=== PATIENT | male | born 1950 | race Caucasian/White ===

== ENCOUNTER 2021-01-27 17:03 | Inpatient (IN) | payer OTHER ==
[~2021-01-27] VITALS: Ht 175.3 cm; Wt 78.5 kg
[~2021-01-27 17:03] MED LIST: CLIN300 PO; LORA1 PO; POTASSIUM; POTCHL20ER PO; [UNRECOGNIZED DRUG - REMARK]
[2021-01-27 17:57] LABS: BASOPHILS ABSOLUTE AUTO 0.02 K/mm3 (0.00-0.23); BASOPHILS PERCENT AUTO 0 % (0-2); EOSINOPHILS PERCENT AUTO 0 % (0-6); Hematocrit 49.5 % (37.0-53.0); Hemoglobin 16.9 g/dL (13.5-17.5); IMMATURE GRAN ABSOLUTE AUTO 0.03 K/mm3 (0.00-0.10); IMMATURE GRAN PERCENT AUTO 0 % (0-1); LYMPHOCYTES ABSOLUTE AUTO 1.51 K/mm3 (0.84-5.20); LYMPHOCYTES PERCENT AUTO 18 % (21-46); MONOCYTES ABSOLUTE AUTO 0.65 K/mm3 (0.16-1.47); MONOCYTES PERCENT AUTO 8 % (4-13); Mean Corpuscular HGB 31.1 pg (26.0-34.0); Mean Corpuscular HGB Conc 34.1 g/dL (31.5-36.5); Mean Corpuscular Volume 91 fL (80-100); Mean Platelet Volume 9.7 fL (9.1-12.4); NEUTROPHILS PERCENT AUTO 73 % (41-73); Platelet Count 215 K/mm3 (150-400); RDW Coefficient Variation 13.5 % (11.7-14.2); RDW Standard Deviation 45.8 fL (35.1-46.3); Red Blood Cell Count 5.43 M/mm3 (4.30-5.90); White Blood Cell Count 8.31 K/mm3 (4.00-11.30)
[2021-01-27 18:05] LABS: Alanine Aminotransfer (ALT/SGP 56 U/L (12-78); Albumin, Blood 3.4 g/dL (3.4-5.0); Albumin/Globulin Ratio 0.8 (0.8-1.8); Alk Phos 67 U/L (50-136); Anion Gap 9 mmol/L (6-16); Aspartate Aminotrans (AST/SGOT 97 U/L (12-37); Bilirubin, Total 0.8 mg/dL (0.1-1.0); Blood Urea Nitrogen 31 mg/dL (8-24); Bun/Creatinine Ratio 22.3 (12.0-20.0); CO2, Blood 24 mmol/L (21-32); Calcium, Blood 8.4 mg/dL (8.5-10.1); Chloride, Blood 99 mmol/L (98-108); Creatinine, Blood 1.39 mg/dL (0.60-1.20); Globulin, Blood 4.5 g/dL (2.2-4.0); Glomerular Filtration Rate 50 (60-); Glucose, Blood 105 mg/dL (70-99); Potassium, Blood 4.8 mmol/L (3.5-5.5); Sodium, Blood 132 mmol/L (136-145); Total Protein, Blood 7.9 g/dL (6.4-8.2); Troponin I <0.015 ng/mL (0.000-0.040)
[2021-01-27] MEDS ORDERED: MELO7.5 PO (23:16)
[2021-01-27] MEDS ORDERED: K-Dur10 MEQ PO (23:17)
[2021-01-28 04:48] LABS: Anion Gap 9 mmol/L (6-16); Blood Urea Nitrogen 27 mg/dL (8-24); Bun/Creatinine Ratio 24.5 (12.0-20.0); CO2, Blood 22 mmol/L (21-32); Calcium, Blood 7.9 mg/dL (8.5-10.1); Chloride, Blood 100 mmol/L (98-108); Glomerular Filtration Rate >60 (60-); Glucose, Blood 238 mg/dL (70-99); Potassium, Blood 4.5 mmol/L (3.5-5.5); Sodium, Blood 131 mmol/L (136-145)
--- NOTE | 2021-01-28 05:44 | NUR ---
SHIFT SUMMARY ASSUMED CARE OF PT AT 2310. PT IS A/OX4. HEART SOUNDS REGULAR, TELE SHOWS SINUS RYTHMN. LUNG SOUNDS ARE COURSE T/O. PT CAME ONTO THE UNIT ON THE BIPAP BUT WAS SWITCHED TO 15L OXIMIZER SO HE COULD HAVE A SNACK. PT SATURATIONS REMAINED BETWEEN 88-92%. PT WAS BEDREST AND USED THE URINAL T/O THE NIGHT. PT REPORTED A NON PRODUCTIVE HACKING COUGH, MEDICATED PER EMAR. CALL LIGHT IN REACH, BED IN LOWEST POSITON.
[2021-01-28 11:59] LABS: PCO2 Arterial 34.9 mmHg (35-45); PO2 Arterial 62.2 mmHg (80-100); pH Blood Arterial 7.43 (7.35-7.45)
--- NOTE | 2021-01-28 19:19 | NUR ---
SHIFT SUMMARY PT A&Ox4; CALM AND COOPERATIVE WITH CARE. PT RESTING IN BED DURING SHIFT, PRONES IND. PT SOB AT REST, ON BIPAP / 85% FIO2, PT UNABLE TO MAINTAIN OF OXYMIZER 15L; PLACED ON AIRVO 60L AT 85%, DESATURATES 86-88 WITH MOVEMENT, OTHERWISE 88-96%. PT DENIES PAIN, NAUSEA AND DIZZINESS. VSS. PT RECEIVED DECADRON IV PER ORDERS. ATTEMPTED TO USE BEDPAN WITH NO SUCCESS. PT HAS RED RASH TO GLUTEAL CLEF. VSS. NO OTHER ACUTE CHANGES NOTED. REPORT GIVEN TO ONCOMING RN.
[2021-01-29 04:01] LABS: BASOPHILS ABSOLUTE AUTO 0.03 K/mm3 (0.00-0.23); BASOPHILS PERCENT AUTO 0 % (0-2); EOSINOPHILS PERCENT AUTO 0 % (0-6); Hematocrit 47.1 % (37.0-53.0); Hemoglobin 16.5 g/dL (13.5-17.5); IMMATURE GRAN ABSOLUTE AUTO 0.08 K/mm3 (0.00-0.10); IMMATURE GRAN PERCENT AUTO 1 % (0-1); LYMPHOCYTES ABSOLUTE AUTO 1.52 K/mm3 (0.84-5.20); LYMPHOCYTES PERCENT AUTO 11 % (21-46); MONOCYTES ABSOLUTE AUTO 1.19 K/mm3 (0.16-1.47); MONOCYTES PERCENT AUTO 9 % (4-13); Mean Corpuscular HGB 31.2 pg (26.0-34.0); Mean Corpuscular Volume 89 fL (80-100); Mean Platelet Volume 9.4 fL (9.1-12.4); NEUTROPHILS ABSOLUTE AUTO 11.18 K/mm3 (1.96-9.15); NEUTROPHILS PERCENT AUTO 80 % (41-73); Platelet Count 259 K/mm3 (150-400); RDW Coefficient Variation 13.2 % (11.7-14.2); RDW Standard Deviation 43.3 fL (35.1-46.3); Red Blood Cell Count 5.29 M/mm3 (4.30-5.90)
[2021-01-29 04:23] LABS: Anion Gap 6 mmol/L (6-16); Blood Urea Nitrogen 35 mg/dL (8-24); Bun/Creatinine Ratio 31.2 (12.0-20.0); CO2, Blood 25 mmol/L (21-32); Calcium, Blood 8.1 mg/dL (8.5-10.1); Chloride, Blood 103 mmol/L (98-108); Creatinine, Blood 1.12 mg/dL (0.60-1.20); Glomerular Filtration Rate >60 (60-); Glucose, Blood 132 mg/dL (70-99); Magnesium, Blood 2.7 mg/dL (1.6-2.4); Phosphorus, Blood 2.9 mg/dL (2.5-4.9); Potassium, Blood 4.5 mmol/L (3.5-5.5); Sodium, Blood 134 mmol/L (136-145)
[2021-01-29 15:53] LABS: Source, Urine Clean Catch
[2021-01-29 16:00] LABS: Appearance, Urine Clear (Clear); Bilirubin, Urine Neg (Neg); Blood, Urine 3+ (Neg); Color, Urine Yellow (P-Yellow); Glucose Qualitative, Urine 2+ (Neg); Ketones, Urine Neg (Neg); Leukocyte Esterase, Urine Neg (Neg); Nitrite, Urine Neg (Neg); Protein, Urine 2+ (Neg); Urobilinogen, Urine NORM (Normal)
[2021-01-29 16:11] LABS: White Blood Cells, Urine 0-2 /hpf (0-5)
[2021-01-29 16:12] LABS: Bacteria Rare /hpf; Squamous Epithelial Cells Rare /hpf (Few)
--- NOTE | 2021-01-29 19:32 | NUR ---
SHIFT SUMMARY PT A&Ox4; ANXIOUS AT TIMES, COOPERATIVE WITH CARE PT RESTING IN BED UP TO CHAIR WITH 1 PERSON ASSIST. PT SOB WITH EXERTION, SPO2 88-90% ON AIRVO 60L AT 100% FIO2, ON BIPAP FOR MAJORITY OF SHIFT, SETTING 12/7 90%, SPO2 >90%. COUGHING NOTED, NONPRODUCTIVE. PT REPORTS HEART BURN THIS AM , DR ALMENDAREZ AT [facility], NEW ORDERS, MEDICATION ADMINISTERED. PT DENIES PAIN, CHEST PAIN, NAUSEA AND DIZZINESS. UP TO CHAIR THIS AFTERNOON FOR BEDBATH AND FOR DINNER. ENCOURAGED PT TO PRONE, ON SIDE T/O SHIFT. NO OTHER ACUTE CHANGES NOTED. REPORT GIVNE TO ONCOMING RN.
[2021-01-30 04:09] LABS: BASOPHILS ABSOLUTE AUTO 0.03 K/mm3 (0.00-0.23); BASOPHILS PERCENT AUTO 0 % (0-2); EOSINOPHILS PERCENT AUTO 0 % (0-6); Hematocrit 46.1 % (37.0-53.0); Hemoglobin 15.9 g/dL (13.5-17.5); Mean Corpuscular HGB 30.9 pg (26.0-34.0); Mean Corpuscular HGB Conc 34.5 g/dL (31.5-36.5); Mean Corpuscular Volume 90 fL (80-100); Mean Platelet Volume 9.9 fL (9.1-12.4); Platelet Count 290 K/mm3 (150-400); RDW Coefficient Variation 13.2 % (11.7-14.2); RDW Standard Deviation 43.5 fL (35.1-46.3); Red Blood Cell Count 5.14 M/mm3 (4.30-5.90); White Blood Cell Count 14.63 K/mm3 (4.00-11.30)
[2021-01-30 04:11] LABS: IMMATURE GRAN ABSOLUTE AUTO 0.13 K/mm3 (0.00-0.10); IMMATURE GRAN PERCENT AUTO 1 % (0-1); LYMPHOCYTES ABSOLUTE AUTO 1.64 K/mm3 (0.84-5.20); LYMPHOCYTES PERCENT AUTO 11 % (21-46); MONOCYTES PERCENT AUTO 8 % (4-13); NEUTROPHILS ABSOLUTE AUTO 11.63 K/mm3 (1.96-9.15); NEUTROPHILS PERCENT AUTO 80 % (41-73)
[2021-01-30 04:30] LABS: Anion Gap 5 mmol/L (6-16); Blood Urea Nitrogen 33 mg/dL (8-24); Bun/Creatinine Ratio 34.5 (12.0-20.0); CO2, Blood 26 mmol/L (21-32); Calcium, Blood 7.8 mg/dL (8.5-10.1); Chloride, Blood 106 mmol/L (98-108); Creatinine, Blood 0.96 mg/dL (0.60-1.20); Glomerular Filtration Rate >60 (60-); Glucose, Blood 126 mg/dL (70-99); Potassium, Blood 4.9 mmol/L (3.5-5.5); Sodium, Blood 137 mmol/L (136-145)
--- NOTE | 2021-01-30 06:13 | NUR ---
SHIFT SUMMARY ASSUMED CARE OF PT AT 1900. PT IS A/OX4. HEART SOUNDS REGULAR. LUNG SOUNDS HAVE FINE CRACKLES T/O. PT SATURATIONS REMAINED BETWEEN 88% - 93% ON THE BIPAP. PT REPORTS COUGHING ALOT, MEDICATED PER EMAR.PT C/O CONSTIPATION, PT HAD A SMALL BM. PT NOTICED YESTERDAY THAT HE WOULD HAVE BLOODY DISCHARGE AFTER URINATING. AFTER URINATING HE WOULD DAB A TISSUE AND IT WOULD TURN FROM PINK TO BRIGHT RED. PT IS WORRIED AND SAID THIS HAS NEVER HAPPENED BEFORE. PT UA SHOED POSITIVE FOR BLOOD AND PROTEIN IN THE URINE BUT NO UTI. CALL LIGHT IN REACH, BED IN LOWEST POSTION.
--- NOTE | 2021-01-30 18:39 | NUR ---
SHIFT SUMMARY PT A/O X4; PLEASANT AND COOPERATIVE WITH CARE. UNABLE TO MAINTAIN O2 SATS ABOVE 90% THIS AM ON AIRVO SO WAS SWITCHED TO CPAP. PT LEFT HIS CPAP ON FOR THE MAJORITY OF THE SHIFT. WAS ABLE TO MAINTAIN O2 SATS >90% AND GOT UP TO THE CHAIR. TRIALED SWITCHING BACK TO AIRVO AND THE PT TOLERATED IT WELL. CURRENTLY ON AIRVO AT 60L WITH 90%. VSS. WILL REPORT TO ONCOMING RN.
--- NOTE | 2021-01-31 00:49 | NUR ---
PT SPO2 READ 88% CONSISTENTLY WHILE PT WAS FALLING ASLEEP, CHANGED TO BIPAP 12/7 100% AND SPO2 READING >93%.
[2021-01-31 03:49] LABS: Hematocrit 44.3 % (37.0-53.0); Hemoglobin 15.4 g/dL (13.5-17.5); Mean Corpuscular HGB Conc 34.8 g/dL (31.5-36.5); Mean Corpuscular Volume 89 fL (80-100); Mean Platelet Volume 9.8 fL (9.1-12.4); Platelet Count 298 K/mm3 (150-400); RDW Coefficient Variation 13.3 % (11.7-14.2); RDW Standard Deviation 43.8 fL (35.1-46.3); Red Blood Cell Count 4.97 M/mm3 (4.30-5.90); White Blood Cell Count 16.66 K/mm3 (4.00-11.30)
[2021-01-31 04:06] LABS: Anion Gap 4 mmol/L (6-16); Blood Urea Nitrogen 29 mg/dL (8-24); Bun/Creatinine Ratio 29.7 (12.0-20.0); CO2, Blood 26 mmol/L (21-32); Calcium, Blood 7.7 mg/dL (8.5-10.1); Chloride, Blood 104 mmol/L (98-108); Creatinine, Blood 0.98 mg/dL (0.60-1.20); Glomerular Filtration Rate >60 (60-); Glucose, Blood 110 mg/dL (70-99); Potassium, Blood 4.6 mmol/L (3.5-5.5); Sodium, Blood 134 mmol/L (136-145)
[2021-01-31 04:28] LABS: PCO2 Arterial 36.2 mmHg (35-45); PO2 Arterial 93.8 mmHg (80-100); pH Blood Arterial 7.46 (7.35-7.45)
--- NOTE | 2021-01-31 04:37 | NUR ---
SHIFT SUMMARY PT HAS SLEPT LIGHTLY FOR THE MAJORITY OF THE NIGHT. INDEPENDENTLY USED THE URINAL CONSISTENTLY. C/O COUGH TREATED PER AUG. SPO2 HELD STEADY AT 88% WHEN FIRST FELL ASLEEP, SWITCHED TO BIPAP AT 12/7 100% AND MAINTAINED SPO2 >93% FOR THE REMAINDER OF THE NIGHT. PT FREQUENTLY REPOSITIONED SELF. SCD'S WERE APPLIED BILAT AND TURNED ON PER ORDERS. NO OTHER ACUTE CHANGES NOTED.
[2021-01-31 05:48] LABS: BASOPHILS PERCENT MAN 0 % (0-2); EOSINOPHILS PERCENT MAN 0 % (0-6); LYMPHOCYTES ABSOLUTE MAN 0.83 K/mm3 (0.84-5.20); LYMPHOCYTES PERCENT MAN 5 % (21-46); MONOCYTES ABSOLUTE MAN 1.83 K/mm3 (0.16-1.47); MONOCYTES PERCENT MAN 11 % (4-13); NEUTROPHILS ABSOLUTE MAN 13.99 K/mm3 (1.96-9.15); SEG NEUTROPHILS PERCENT MAN 84 % (41-73); TOTAL CELLS COUNTED 100
--- NOTE | 2021-01-31 06:28 | NUR ---
PT AWOKE AND REQUESTED TO BE PUT BACK ON HIGH FLOW NC FOR DAYTIME. 60L 100% SPO2 CURRENTLY READING 91%.
--- NOTE | 2021-01-31 07:30 | NUR ---
[place] of Care Received report from night nurse. Pt is a/o and resting in bed currently. He needs encouragement of proning. He is currently on 100% O2 via Bipap and has been saturating in the low 90's per report and he is currently at 90%. He has his call light in reach.
--- NOTE | 2021-01-31 16:28 | NUR ---
Shift Summary Pt has been a/o x 4 today with no c/o pain. He remains on the AIRVO @ 100% and has had o2 sats in the high 80's-low 90's. His appetite is decent and he has been drinking water. He has been is NSR today. The SEARCH DIRECTOR assisted him with a bed bath and he is sitting up in the recliner. He is able to make his needs known, uses the urinal at the bedside and has his call light in reach.
--- NOTE | 2021-01-31 21:15 | NUR ---
PT IS SITTING UP IN A CHAIR. PT DENIES ANY COMPLAINTS OF HEADACHE, CHEST PAIN, NAUSEA, OR NUMBNESS AND TINGLING. PT DENIES SOB AT THIS TIME, BUT DOES REPORT SOB WITH ACTIVITY. PT IS A PLEASANT OLDER GENTLEMAN, COOPERATIVE WITH CARE. PT REPORTS HE IS URINATING WITHOUT DIFFICULTY. FLUIDS AT BEDSIDE. CALL LIGHT WITHIN REACH. PT DENIES ANY PAIN OR DISCOMFORT, DENIES REQUESTS AT THIS TIME.
[2021-02-01 03:55] LABS: BASOPHILS ABSOLUTE AUTO 0.04 K/mm3 (0.00-0.23); BASOPHILS PERCENT AUTO 0 % (0-2); EOSINOPHILS PERCENT AUTO 0 % (0-6); Hematocrit 47.9 % (37.0-53.0); Hemoglobin 16.5 g/dL (13.5-17.5); Mean Corpuscular HGB 30.8 pg (26.0-34.0); Mean Corpuscular HGB Conc 34.4 g/dL (31.5-36.5); Mean Corpuscular Volume 90 fL (80-100); Mean Platelet Volume 9.5 fL (9.1-12.4); Platelet Count 341 K/mm3 (150-400); RDW Coefficient Variation 13.2 % (11.7-14.2); RDW Standard Deviation 43.3 fL (35.1-46.3); Red Blood Cell Count 5.35 M/mm3 (4.30-5.90); White Blood Cell Count 16.66 K/mm3 (4.00-11.30)
[2021-02-01 03:56] LABS: IMMATURE GRAN ABSOLUTE AUTO 0.26 K/mm3 (0.00-0.10); IMMATURE GRAN PERCENT AUTO 2 % (0-1); LYMPHOCYTES ABSOLUTE AUTO 1.75 K/mm3 (0.84-5.20); LYMPHOCYTES PERCENT AUTO 11 % (21-46); MONOCYTES ABSOLUTE AUTO 1.04 K/mm3 (0.16-1.47); MONOCYTES PERCENT AUTO 6 % (4-13); NEUTROPHILS ABSOLUTE AUTO 13.57 K/mm3 (1.96-9.15); NEUTROPHILS PERCENT AUTO 82 % (41-73)
[2021-02-01 04:14] LABS: Anion Gap 4 mmol/L (6-16); Blood Urea Nitrogen 24 mg/dL (8-24); Bun/Creatinine Ratio 24.3 (12.0-20.0); CO2, Blood 27 mmol/L (21-32); Calcium, Blood 8.2 mg/dL (8.5-10.1); Chloride, Blood 103 mmol/L (98-108); Creatinine, Blood 0.99 mg/dL (0.60-1.20); Glomerular Filtration Rate >60 (60-); Glucose, Blood 103 mg/dL (70-99); Potassium, Blood 4.7 mmol/L (3.5-5.5); Sodium, Blood 134 mmol/L (136-145)
--- NOTE | 2021-02-01 05:56 | NUR ---
SHIFT SUMMARY - PAS PLACED ON THIS AM. PT HAS TOLERATED THE BIPAP THROUGHOUT THE NIGHT, WITH SHORT BREAKS FOR FLUID INTAKE. PT SLEPT FOR APPX 5-6 HOURS TONIGHT. PT DENIED ANY URINARY DISCOMFORT. NO ACUTE CHANGES THROUGHOUT THE SHIFT. FLUIDS AT BEDSIDE. CALL LIGHT WITHIN REACH. BED IN LOW POSITION.
--- NOTE | 2021-02-01 07:47 | NUR ---
ASSUMPTION OF CARE RECIEVED REPORT FROM SLURRY CONTROL OPERATOR HELPER RN. PATIENT SITTING UP RESTING IN BED. TOLERATING BIPAP WELL. O2 SATURATIONS MAINTAINING MID 90S AT REST. ABLE TO MAKE NEEDS KNOWN.
--- NOTE | 2021-02-01 11:27 | NUR ---
UPDATE PATIENT TRANSITIONED TO 60L/100% FIO2 HIGH FLOW NC FROM BIPAP WITH RT AND RN. OXYGEN SATURATION MAINTAINING 90%. PATIENT SITTING UP IN THE CHAIR AWAITING LUNCH. CALL LIGHT IN REACH.
--- NOTE | 2021-02-01 11:40 | NUR ---
SKIN MARKING COCCYX MEPILEX DRESSING PLACED TO BUTTOCKS FOR PROTECTION. REDNESS NOTED DURING ASSESSMENT.
--- NOTE | 2021-02-01 17:17 | NUR ---
SHIFT SUMMARY PATIENT A&Ox4 THIS SHIFT. DENIES ANY PAIN. CURRENTLY ON 60L/100% FIO2 HIGH FLOW SINCE 1115. MAINTAINING O2 SATURATIONS IN THE MID 80S-LOW 90S. PATIENT ABLE TO SIT IN RECLINER AND TOLERATE THE TRANSFER FROM THE BED TO THE CHAIR. SOB WITH ACTIVITY BUT DENIES SOB AT REST. HR NSR IN 70S. PATIENT ENCOURAGED TO PRONE WHEN IN BED. MEPILEX APPLIED TO BUTTOCK AREA FOR PREVENTATIVE MEASURES. ABLE TO MAKE NEEDS KNOW. HAS CALL LIGHT IN REACH. WILL REPORT TO PARCEL POST ORDER CLERK RN.
[2021-02-02 04:48] LABS: BASOPHILS ABSOLUTE AUTO 0.02 K/mm3 (0.00-0.23); BASOPHILS PERCENT AUTO 0 % (0-2); EOSINOPHILS ABSOLUTE AUTO 0.01 K/mm3 (0.00-0.68); EOSINOPHILS PERCENT AUTO 0 % (0-6); Hematocrit 44.1 % (37.0-53.0); Hemoglobin 15.2 g/dL (13.5-17.5); IMMATURE GRAN ABSOLUTE AUTO 0.22 K/mm3 (0.00-0.10); IMMATURE GRAN PERCENT AUTO 2 % (0-1); LYMPHOCYTES ABSOLUTE AUTO 1.08 K/mm3 (0.84-5.20); LYMPHOCYTES PERCENT AUTO 7 % (21-46); MONOCYTES PERCENT AUTO 4 % (4-13); Mean Corpuscular HGB 30.7 pg (26.0-34.0); Mean Corpuscular HGB Conc 34.5 g/dL (31.5-36.5); Mean Corpuscular Volume 89 fL (80-100); Mean Platelet Volume 9.9 fL (9.1-12.4); NEUTROPHILS PERCENT AUTO 87 % (41-73); Platelet Count 342 K/mm3 (150-400); RDW Coefficient Variation 13.2 % (11.7-14.2); RDW Standard Deviation 43.3 fL (35.1-46.3); Red Blood Cell Count 4.95 M/mm3 (4.30-5.90); White Blood Cell Count 14.93 K/mm3 (4.00-11.30)
[2021-02-02 05:08] LABS: Anion Gap 6 mmol/L (6-16); Blood Urea Nitrogen 21 mg/dL (8-24); Bun/Creatinine Ratio 24.3 (12.0-20.0); CO2, Blood 26 mmol/L (21-32); Calcium, Blood 7.6 mg/dL (8.5-10.1); Chloride, Blood 103 mmol/L (98-108); Creatinine, Blood 0.86 mg/dL (0.60-1.20); Glomerular Filtration Rate >60 (60-); Glucose, Blood 100 mg/dL (70-99); Potassium, Blood 4.7 mmol/L (3.5-5.5); Sodium, Blood 135 mmol/L (136-145)
--- NOTE | 2021-02-02 07:44 | NUR ---
SHIFT SUMMARY: PATIENT A/OX3. HAS DENIED PAIN THROUGHOUT THE SHIFT. ON BIPAP 12/7 FIO2 100% WHILE SLEEPING. TOLERATES AIRVO 60L FIO2 100% WHEN AWAKE, ALTHOUGH WITH EXERTION SUCH USING THE URINAL HE DOES DROP DOWN TO 70'S BUT INCREASES BACK UP TO 80'S-90'S WHEN HE TAKES DEEP BREATHS. HE REFUSED TO PRONE UNTIL THIS AM WHERE HE PRONED FOR APPROX 1.5 HOURS. PREVENTATIVE ALLEVYN DRESSING TO COCCYX. REPORT GIVEN TO ONCOMING RN.
--- NOTE | 2021-02-02 18:43 | NUR ---
SHIFT SUMMARY PT HAS BEEN ON BIPAP BETWEEN MEALS. ONLY ON AIRVO FOR 1 HOUR FOR BREAKFAST. TOLERATED FOR A LONGER PERIOD OF TIME AT LUNCH. LAYED ON HIS SIDE THIS AFTERNOON AFTER COAXING. WAS 95% LAYING ON HIS R SIDE WITH BIPAP. ROLLED TO HIS BACK FOR SUPPER AND AIRVO REPLACED. REQUIRED AIR BEING BUMPED UP TO 75 TO MAINTAIN SATS 89-91% WITH MINIMAL ACTIVITY. DENIES RESP DISTRESS AND SHORTNESS OF BREATH WHILE LAYING IN BED SATING IIN LOW 80S BEFORE AIR INCREASED. O2 AT 100% BY AIRVO. USING URINAL
[2021-02-03 03:50] LABS: BASOPHILS ABSOLUTE AUTO 0.03 K/mm3 (0.00-0.23); BASOPHILS PERCENT AUTO 0 % (0-2); EOSINOPHILS PERCENT AUTO 0 % (0-6); Hematocrit 44.7 % (37.0-53.0); Hemoglobin 15.3 g/dL (13.5-17.5); IMMATURE GRAN PERCENT AUTO 1 % (0-1); LYMPHOCYTES PERCENT AUTO 5 % (21-46); MONOCYTES ABSOLUTE AUTO 0.54 K/mm3 (0.16-1.47); MONOCYTES PERCENT AUTO 4 % (4-13); Mean Corpuscular HGB 30.5 pg (26.0-34.0); Mean Corpuscular HGB Conc 34.2 g/dL (31.5-36.5); Mean Corpuscular Volume 89 fL (80-100); Mean Platelet Volume 9.6 fL (9.1-12.4); NEUTROPHILS ABSOLUTE AUTO 13.48 K/mm3 (1.96-9.15); NEUTROPHILS PERCENT AUTO 90 % (41-73); Platelet Count 355 K/mm3 (150-400); RDW Coefficient Variation 13.3 % (11.7-14.2); RDW Standard Deviation 43.8 fL (35.1-46.3); Red Blood Cell Count 5.01 M/mm3 (4.30-5.90); White Blood Cell Count 15.05 K/mm3 (4.00-11.30)
[2021-02-03 04:06] LABS: Anion Gap 5 mmol/L (6-16); Blood Urea Nitrogen 22 mg/dL (8-24); Bun/Creatinine Ratio 23.9 (12.0-20.0); CO2, Blood 27 mmol/L (21-32); Calcium, Blood 8.3 mg/dL (8.5-10.1); Chloride, Blood 103 mmol/L (98-108); Creatinine, Blood 0.92 mg/dL (0.60-1.20); Glomerular Filtration Rate >60 (60-); Glucose, Blood 126 mg/dL (70-99); Potassium, Blood 4.9 mmol/L (3.5-5.5); Sodium, Blood 135 mmol/L (136-145)
--- NOTE | 2021-02-03 06:16 | NUR ---
PATIENT IS BIPAP DEPENDENT ON 100 FIO2 CAN TOLERATE SHORT PERIODS ON THE AIRVO AND WOULD LIKE TO KEEP IT DURING MEAL TIMES, PATIENT HAS PRILOSEC ORDERED FOR 0600 WILL HOLD TIL BREAKFAST, CURRENTLY PATIENT IS PRONING LEFT, TO RIGHT, ABLE TO MAKE NEEDS KNOWN, CALLS APPROPRIATELY, CAN TALK IN SHORT SENTANCES. NO NEW EVENTS OVERNIGHT.
[2021-02-03 14:49] LABS: PCO2 Arterial 32.7 mmHg (35-45); PO2 Arterial 65.7 mmHg (80-100); pH Blood Arterial 7.45 (7.35-7.45)
--- NOTE | 2021-02-03 17:46 | NUR ---
SHIFT SUMMARY: NO ACUTE CHANGES T/OUT THE SHIFT. PT IS A&OX4, CONTINUES DEPENDENT ON BIPAP WITH SHORT BREAKS USING AIRVO FOR MEALS, PT QUICKLY DESATS WITH EXERTION AND REQUIRES REST TO BRING O2 SATS UP. PT ABLE TO TRANSFER SELF TO AND FROM BSC AND RECLINER T/OUT THE DAY WITH SBA. PT USES URINAL W/OUT DIFFICULTY, MEPILEX DRESSING TO COCCYX FOR PREVENTATIVE. WILL CONTINUE TO MONITOR AND TREAT ACCORDINGLY UNTIL CHANGE OF SHIFT.
[2021-02-04 04:03] LABS: pH Blood Venous 7.53 (7.34-7.37)
[2021-02-04 04:04] LABS: Base Excess Venous 1.1 mmol/L; Bicarbonate Venous 26.5 mmol/L (24.0-30.0); PCO2 Venous 28.6 mmHg (38-42); PO2 Venous 86.5 mmHg (38-42)
[2021-02-04 04:25] LABS: BASOPHILS ABSOLUTE AUTO 0.02 K/mm3 (0.00-0.23); BASOPHILS PERCENT AUTO 0 % (0-2); EOSINOPHILS PERCENT AUTO 0 % (0-6); Hematocrit 44.7 % (37.0-53.0); Hemoglobin 15.5 g/dL (13.5-17.5); IMMATURE GRAN ABSOLUTE AUTO 0.25 K/mm3 (0.00-0.10); IMMATURE GRAN PERCENT AUTO 2 % (0-1); LYMPHOCYTES ABSOLUTE AUTO 0.65 K/mm3 (0.84-5.20); LYMPHOCYTES PERCENT AUTO 4 % (21-46); MONOCYTES ABSOLUTE AUTO 0.65 K/mm3 (0.16-1.47); MONOCYTES PERCENT AUTO 4 % (4-13); Mean Corpuscular HGB 30.7 pg (26.0-34.0); Mean Corpuscular HGB Conc 34.7 g/dL (31.5-36.5); Mean Corpuscular Volume 89 fL (80-100); Mean Platelet Volume 9.7 fL (9.1-12.4); NEUTROPHILS ABSOLUTE AUTO 15.48 K/mm3 (1.96-9.15); NEUTROPHILS PERCENT AUTO 91 % (41-73); Platelet Count 406 K/mm3 (150-400); RDW Coefficient Variation 13.2 % (11.7-14.2); RDW Standard Deviation 43.3 fL (35.1-46.3); Red Blood Cell Count 5.05 M/mm3 (4.30-5.90); White Blood Cell Count 17.05 K/mm3 (4.00-11.30)
[2021-02-04 04:40] LABS: Anion Gap 7 mmol/L (6-16); Blood Urea Nitrogen 25 mg/dL (8-24); Bun/Creatinine Ratio 29.2 (12.0-20.0); CO2, Blood 24 mmol/L (21-32); Chloride, Blood 105 mmol/L (98-108); Creatinine, Blood 0.86 mg/dL (0.60-1.20); Glomerular Filtration Rate >60 (60-); Glucose, Blood 125 mg/dL (70-99); Magnesium, Blood 2.3 mg/dL (1.6-2.4); Phosphorus, Blood 3.3 mg/dL (2.5-4.9); Potassium, Blood 4.8 mmol/L (3.5-5.5); Sodium, Blood 136 mmol/L (136-145)
--- NOTE | 2021-02-04 06:10 | NUR ---
SHIFT SUMMARY NO ACUTE EVENTS THIS SHIFT. PT ALERT AND ORIENTED X4. BIPAP DEPENDENT. ON BIPAP 05/22 100% FIO2, O2 SATS BETWEEN 86 AND LOW 90'S. PT DESATS WITH ACTIVITY AND WITH BIPAP OFF. TELE READS 70'S NSR AND BP STABLE. PT FREQUENTLY CHANGED POSITIONS THROUGHOUT SHIFT ON HIS OWN. UNABLE TO TOLERATE PRONING. 7.53 VBG VALUE AT 0359. WOUND ON BRIDGE OF NOSE UNDERNEATH BIPAP. PT LEFT IN BED RESTING WITH CALL ALARM AT SIDE. WILL CONTINUE TO MONITOR UNTIL REPORT GIVEN TO ROCIO HOFFMAN.
--- NOTE | 2021-02-04 14:43 | NUR ---
UPDATE PATIENT REQUESTED FOR FAMILY TO BE UPDATED WITH TRANSFER. SPOKE WITH PATIENT'S DAUGHTER AND GAVE THE UPDATE. TRANSPORT TO ARRIVE AT 1500.
--- NOTE | 2021-02-04 16:29 | NUR ---
DISCHARGE PATIENT DISCHARGED TO [facility] VIA [facility]OUND TRANSPORT. ALL BELONGINGS ACCOMPANIED PATIENT. REPORT WILL BE CALLED RN ON DUTY. FAMILY UPDATED WITH PATIENTS STATUS AND TRANSFER LOCATION.
== END 2021-02-04 16:30 | DRG 177 ==
LOC: ER 17:03 → PCU 19:55 → ERHOLD 19:55 → PCU 22:59
PROVIDERS: Family Medicine; Internal Medicine; Student in an Organized Health Care Education/Training Program; ADMIT Internal Medicine
PROC: 8E0ZXY6 Isolation (ICD-10-PCS; principal; 2021-01-27)
PROC: 3E0333Z Introduction of Anti-inflammatory into Peripheral Vein, Percutaneous Approach (ICD-10-PCS; 2021-01-27)
PROC: XW033E5 Introduction of Remdesivir Anti-infective into Peripheral Vein, Percutaneous Approach, New Technology Group 5 (ICD-10-PCS; 2021-01-27)
PROC: 5A09457 Assistance with Respiratory Ventilation, 24-96 Consecutive Hours, Continuous Positive Airway Pressure (ICD-10-PCS; 2021-01-27)
PROC: 5A0945A Assistance with Respiratory Ventilation, 24-96 Consecutive Hours, High Flow/Velocity Cannula (ICD-10-PCS; 2021-01-29)
DX: U07.1 COVID-19 (principal); J12.82 Pneumonia due to coronavirus disease 2019; J96.01 Acute respiratory failure with hypoxia; E87.1 Hypo-osmolality and hyponatremia; D68.32 Hemorrhagic disorder due to extrinsic circulating anticoagulants; N17.9 Acute kidney failure, unspecified; J84.10 Pulmonary fibrosis, unspecified; R94.4 Abnormal results of kidney function studies; R73.9 Hyperglycemia, unspecified; T45.515A Adverse effect of anticoagulants, initial encounter; R31.9 Hematuria, unspecified; T38.0X5A Adverse effect of glucocorticoids and synthetic analogues, initial encounter; Z87.891 Personal history of nicotine dependence; Z79.1 Long term (current) use of non-steroidal anti-inflammatories (NSAID); Z71.6 Tobacco abuse counseling; Z79.899 Other long term (current) drug therapy
CPT/HCPCS: 36415; 36600; 71045; 71260; 80048; 80053; 81001; 82803; 82947; 83735; 83880; 84100; 84484; 85025; 85379; 93005; 93010; 94640; 94660; 94664; 94762; 96372-59; 96374-59; 96375-59; 99285-25; A9270; J1100; J1650; J2405; J7050; Q9967